=== PATIENT | female | born 1985 | race Caucasian/White ===

== ENCOUNTER 2018-02-01 18:50 | Emergency (ER) | payer BC ==
[~2018-02-01] VITALS: Ht 167.6 cm; Wt 78.7 kg
[2018-02-01 18:53] VITALS: BP 116/75; PULSE 77; TEMP 36.7; O2SAT 99; Ht 167.6 cm; Wt 78.7 kg
[2018-02-01] MEDS ORDERED: IBUP-1050 PO (19:10)
[2018-02-01] MEDS ORDERED: HYDR-5688 PO (19:13)
[2018-02-01] MEDS ORDERED: PENI-82 PO (19:13)
[2018-02-01] MEDS ORDERED: NORCO 5/325MG HOME PACK PO ONE (19:15)
[2018-02-01] MEDS ORDERED: PENICILLIN HOME PACK 500MG (4 DOSES)BTL PO ONE (19:15)
--- NOTE | 2018-02-01 23:31 | EMERGENCY ROOM VISIT NOTE ---
ED Visit Note First contact with patient: 18:56 CHIEF COMPLAINT: Toothache HISTORY OF PRESENT ILLNESS: This 33-year-old female patient presented to the emergency department with a progressive toothache for past 1-2 days. The patient believes it is coming from a left upper molar. The pain is now steady and severe and radiates to the face. The patient has called but does not have a dentist appointment set up currently. They rate their pain a 7/10 and the ibuprofen and Tylenol they have been taking has not relieved the pain. Denies facial swelling or fever. The patient denies any discharge from the mouth. REVIEW OF SYSTEMS: A 6 system review of systems was completed with positives and pertinent negatives listed in the HPI. ALLERGIES: No known allergies MEDICATIONS: No chronic medication PMH: Otherwise healthy SOCIAL HISTORY: Lives locally PHYSICAL EXAM: Vitals are noted on the nurse's note and reviewed by myself. Vital signs stable. GENERAL: White female, in no acute distress, nondiaphoretic, well-developed well -nourished. Mouth: The left upper wisdom tooth is very carious and the gum is swollen and tender around it, without any discharge or signs of an abscess. The remainder of the pharynx and tonsils are without erythema, edema, or exudate. The airway is patent. There is no facial swelling, cervical or submandibular lymphadenopathy. The patient appears uncomfortable and in pain. The patient has overall fair dental hygiene. EARS: External auditory canals clear, tympanic membranes pearly sanchez without erythema or effusion bilaterally. HEART: Regular rate and rhythm without murmur gallop or rub LUNG: Clear to auscultation bilateral ED COURSE: Physical exam and history were performed. Nursing notes and EMR were reviewed. The patient appears to have dental pain for the past 1-2 days. No gross abscesses noted on examination. The patient is not regularly seen at this department for similar symptoms. She will be started on a course of Pen- Vee K and given a short course of Vicodin. She is to follow with her dentist as soon as possible for definitive care. She was otherwise invited back to the ER with any new, worsening, or concerning symptoms. Current/Historical Medications Scheduled Penicillin V Potassium (Veetids), 500 MG PO QID Scheduled PRN Hydrocodone/Acetaminophen 5MG/325MG ([place] 5MG/325MG), 1 TABLET PO Q6 PRN for Pain Ibuprofen (Advil), 1,000-1,200 MG PO TID PRN for Pain Allergies Coded Allergies: No Known Allergies (Verified , 02/01/18) Vital Signs Date Time Temp Pulse Resp B/P (MAP) Pulse Ox O2 Delivery O2 Flow Rate FiO2 02/01/18 18:53 36.7 77 18 116/75 99 Room Air Medications Administered Medications (Trade) Dose Ordered Sig/[place] Route Start Time Stop Time Status Last Admin Dose Admin Acetaminophen/ Hydrocodone Bitart ([place] 5/325mg Home Pack) 1 homepack UD ONCE PO 02/01/18 19:15 02/01/18 19:16 DC 02/01/18 19:21 1 HOMEPACK Penicillin V Potassium (Pen-Vk 500MG Home Pack) 1 homepack UD ONCE PO 02/01/18 19:15 02/01/18 19:16 DC 02/01/18 19:21 1 HOMEPACK Departure Information Impression Primary Impression: Pain, dental Dispostion Home / Self-Care Condition GOOD Prescriptions Penicillin V Potassium (Veetids) 500 Mg Tab 500 MG PO QID for 10 Days, #40 TAB Prov: Ron Conklin PA-C 02/01/18 Hydrocodone/Acetaminophen 5MG/325MG ([place] 5MG/325MG) Tab 1 TABLET PO Q6 Y for Pain, #12 TAB PRN PAIN Prov: Ron Conklin PA-C 02/01/18 Forms HOME CARE DOCUMENTATION FORM, IMPORTANT VISIT INFORMATION Patient Instructions [facility] Additional Instructions You were seen and evaluated today on an emergency basis only. This is not a substitute for, or an effort to provide, complete comprehensive medical care. It is not possible to recognize and treat all injuries or illnesses in a single emergency department visit. For this reason it is recommended that you followup with your dentist as soon as possible for definitive care. Take Pen-Vee K 4 times daily For baseline pain relief you may alternate ibuprofen and acetaminophen every 4 hours for pain control. Take 600 mg ibuprofen (Advil) and then 4 hours later take 1000 mg acetaminophen (Tylenol). Do not take more than 3000 mg acetaminophen in a single day. [place] (hydrocodone/acetaminophen) 5/325 mg every 6 hours as needed for worsening breakthrough pain. Do not drink or drive on [place]. This medication will likely make you tired. Do not take [place] and Tylenol at the same time as both contain acetaminophen. [place] may cause constipation. You may wish to take an [id number] stool softener like Colace if this occurs. You are welcome to return to the emergency department anytime with new, worsening, or concerning symptoms.
== END 2018-02-01 19:26 | disposition home or self-care (01) ==
LOC: C.EDB 18:51 → C.EDD 19:26
DX: K08.89 Other specified disorders of teeth and supporting structures (principal)